=== PATIENT | female | born 1985 | race American Indian/Alaskan Native ===

== ENCOUNTER 2019-10-14 12:17 | Inpatient (IN) | payer OTHER ==
[2019-10-14] MEDS ORDERED: BUTORPHANOL 2 MG/1 ML INJ IV PRN (12:36)
[2019-10-14] MEDS ORDERED: OXYTOCIN DRIP 30,000 MILLIUNITS/500 ML BAG IV ONE (13:00)
[2019-10-14] MEDS ORDERED: AMPICILLIN 2 GM in SODIUM CHLORIDE 0.9% 50 ML IV ONE (13:00)
[2019-10-14 14:03] LABS: Hematocrit 31.4 % (30.3-42.9); Hemoglobin 10.4 gm/dl (10.1-14.3); Mean Corpuscular HGB Conc 33 % (30-34); Mean Corpuscular Volume 81 fl (79-97); Platelet Count 286 K/mm3 (140-440); Red Cell Distribution Width 18.4 % (13.2-15.2)
[2019-10-14 14:28] LABS: Alanine Aminotransferase 8 units/L (7-56); Uric Acid 5.7 mg/dL (3.5-7.6)
[2019-10-14] MEDS: LACTATED RINGERS 1,000 ML IV SCH ×2 (14:54→19:35)
[2019-10-14] MEDS ORDERED: AMPICILLIN/NS 1 GM/50 ML 1 GM/50 ML BAG IV SCH (17:00)
[2019-10-14] MEDS ORDERED: ePHEDrine SULFATE 50 MG/1 ML INJ ONE (19:23)
[2019-10-14] MEDS ORDERED: fentaNYL 100 MCG/2 ML INJ ONE ×2 (19:29→20:19)
[2019-10-14] MEDS ORDERED: BUPIVACAINE/PF (0.25%) 2.5 MG/ML 10 ML VIAL INFILTRATI ONE (19:29)
[2019-10-14] MEDS ORDERED: OXYTOCIN 20 UNIT/1000ML DRIP 20,000 MILLIUNITS/1,000 ML BAG IV ONE (19:34)
[2019-10-14] MEDS ORDERED: LIDOCAINE (2%) 20 MG/1 ML VIAL 20 ML MDV INFILTRATI ONE ×4 (19:47→20:59)
[2019-10-14] MEDS ORDERED: OXYTOCIN 10 UNIT/1 ML INJ ONE (20:07)
[2019-10-14] MEDS ORDERED: fentaNYL 100 MCG/2 ML INJ IV ONE ×2 (20:32→21:00)
[2019-10-14] MEDS ORDERED: ePHEDrine SULFATE 50 MG/1 ML INJ IV PRN (20:59)
[2019-10-14] MEDS ORDERED: MINERAL OIL 30 ML ORAL LIQD PO PRN (20:59)
[2019-10-14] MEDS ORDERED: LACTATED RINGERS 1,000 ML IV SCH (21:00)
[2019-10-14] MEDS ORDERED: OXYTOCIN 20 UNIT/1000ML DRIP 20 UNITS/1,000 ML BAG IV SCH (21:00)
--- NOTE | 2019-10-14 21:09 | History and Physical Report ---
History of Present Illness Date of examination: 10/14/19 Date of admission: 10/14/19 13:25 Chief complaint: My water broke History of present illness: Pt is a 34 year old who presents at 39.2 weeks with c/o rom and contractions. Per patient her course has been complicated by fibroids. She has been receiving care at [facility]. records are not available for review. Past History Past Medical History: no pertinent history Past Surgical History: no surgical history REVENUE MANAGER History: fibroids Social history: - Obstetrical History Expected Date of Delivery: 10/19/19 Actual Gestation: 39 Week(s) 2 Day(s) : 1 Medications and Allergies Allergies Allergy/AdvReac Type Severity Reaction Status Date / Time No Known Allergies Allergy Unverified 10/14/19 12:29 Home Medications Medication Instructions Recorded Confirmed Last Taken Type Vitamin 1 tab PO DAILY 10/14/19 10/14/19 Unknown History Active Meds: Active Medications Butorphanol Tartrate (Stadol) 2 mg IV Q2H PRN PRN Reason: Labor Pain Last Admin: 10/14/19 16:06 Dose: 2 mg Documented by: Ephedrine Sulfate (Ephedrine Sulfate) 10 mg IV Q2M PRN PRN Reason: Hypotension Lactated Ringer's (Lactated Ringers) 1,000 mls @ 125 mls/hr IV DIRECT QUETA Last Admin: 10/14/19 19:35 Dose: 125 mls/hr Documented by: Oxytocin/Sodium Chloride (Pitocin/Ns 30 Unit/500ml) 30,000 milliunits in 500 mls @ 4 mls/hr IV DIRECT ONE; Protocol Stop: 10/19/19 17:59 Last Admin: 10/14/19 13:30 Dose: 4 milliunits/min, 4 mls/hr Documented by: Ampicillin Sodium (Ampicillin/Ns 1 Gm/50 Ml) 1 gm in 50 mls @ 100 mls/hr IV Q4H QUETA; Protocol Last Admin: 10/14/19 18:03 Dose: 100 mls/hr Documented by: Oxytocin/Sodium Chloride (Pitocin/Ns 20 Unit/1000ml Drip) 20 units in 1,000 mls @ 125 mls/hr IV DIRECT QUETA Lactated Ringer's (Lactated Ringers) 1,000 mls @ 125 mls/hr IV DIRECT QUETA Mineral Oil (Mineral Oil) 30 ml PO QHS PRN PRN Reason: Constipation Review of Systems All systems: negative Constitutional: weakness Breasts: deferred Genitourinary: leakage of fluid, contractions - Vital Signs Vital signs: Vital Signs Pulse BP 91 H 133/85 10/14/19 14:50 10/14/19 14:50 Temp Pulse Resp BP Pulse Ox 97.3 F L 102 H 154/75 10/14/19 14:59 10/14/19 20:49 10/14/19 20:49 - Physical Exam Breasts: Cardiovascular: Regular rate, Normal S1, Normal S2 Abdomen: Positive: normal appearance, soft, normal bowel sounds. Negative: distention, tenderness Vulva: both: normal Vagina: Positive: normal moisture. Negative: discharge Cervix: Negative: lesion, discharge Uterus: Positive: normal size, normal contour Adnexa: both: normal Anus/Rectum: Positive: normal perianal skin, heme negative. Negative: rectal mass, hemorrhoids Extremities: Deep Tendon Reflex Grade: Normal +2 - Obstetrical Cervical Dilatation: 1 Cervical Effacement Percentage: 50 station: -3 Uterine Contraction Pattern: Irregular Uterine Contraction Intensity: Moderate Results Result Diagrams: 10/14/19 13:47 10/14/19 13:47 Abnormal lab results 10/14/19 10/14/19 Range/Units 13:47 13:47 MCH 27 L (28-32) pg RDW 18.4 H (13.2-15.2) % Creatinine 0.5 L (0.7-1.2) mg/dL Lactate Dehydrogenase 207 H (91-180) units/L All other labs normal. Assessment and Plan IUP at 39.2 weeks with SROM. WIll admit to L&d. Treat for unknown GBS status. Pt may have epidural when ready. Anticipate .
--- NOTE | 2019-10-14 21:15 | Procedure Note ---
OB Delivery Note - Delivery Date of Delivery: 10/14/19 Surgeon: DARIAN JUÁREZ Estimated blood loss: 300cc - Vaginal Delivery presentation: vertex Delivery position: OA Intrapartum events: shoulder dystocia Delivery induction: none Delivery augmentation: pitocin Delivery monitor: external FHT, external uterine Route of delivery: Delivery placenta: spontaneous Delivery cord: 3 umbilical vessels Episiotomy: none Delivery laceration: 3rd degree (partial), vaginal side wall Delivery repair: vicryl Delivery comments: Viable female delivered by inhouse medical record specialist with apgars 6,9 and reported minor shoulder dystocia. Cord clamped and cut and infant handed to waiting nursery team. Placenta delivered spontaneuosly and intact by physician. partial 3rd degree laceration repaired with 3.0 vicryl and vaginal tears repaired with 2.0 vicryl. Pt tolerated procedure well Note: Day shift nurse was attempting to reach the wrong provider. Dr neon molder was not notified of patient progress until she was 9.5cm dilated - A at 1 minute: 6 at 5 minutes: 9 Infant Gender: Female (9 pounds 2 ounces)
[2019-10-14] MEDS ORDERED: ONDANSETRON 4 MG/2 ML INJ IV PRN (22:44)
[2019-10-14] MEDS ORDERED: WITCH HAZEL/ GLYCERIN PAD TP PRN (22:44)
[2019-10-14] MEDS ORDERED: diphenhydrAMINE 25 MG CAP PO PRN (22:44)
[2019-10-14] MEDS ORDERED: PROMETHAZINE 25 MG TAB PO PRN (22:44)
[2019-10-14] MEDS ORDERED: MAGNESIUM HYDROXIDE (MOM) ORAL LIQD UDC PO PRN (22:44)
[2019-10-14] MEDS ORDERED: LANOLIN/ZINC/DIMETHICONE (LANSINOH) 7 GM TP PRN (22:44)
[2019-10-14] MEDS ORDERED: ACETAMINOPHEN 325 MG TAB PO PRN (22:44)
[2019-10-14] MEDS: METHYLERGONOVINE 0.2 MG TABLET PO SCH (22:45)
[2019-10-14] MEDS: FERROUS SULFATE 325 MG TAB PO SCH (22:45)
[2019-10-14] MEDS: DOCUSATE SODIUM 100 MG CAP PO SCH (22:45)
[2019-10-14] MEDS: HYDROcodone/ACETAMINOPHEN 5-325 MG TAB PO PRN (22:59)
[2019-10-14] MEDS: IBUPROFEN 600 MG TAB PO SCH (23:56)
[2019-10-15] MEDS ORDERED: OXYTOCIN 10 UNIT/1 ML INJ IM ONE (01:36)
[2019-10-15] MEDS: HYDROcodone/ACETAMINOPHEN 5-325 MG TAB PO PRN ×2 (05:13→19:59)
[2019-10-15] MEDS: METHYLERGONOVINE 0.2 MG TABLET PO SCH ×3 (05:42→21:59)
[2019-10-15] MEDS: IBUPROFEN 600 MG TAB PO SCH ×3 (06:00→17:51)
[2019-10-15] MEDS ORDERED: TETANUS,DIPH,PERTUSS(ACELL) VACCINE 0.5 ML SYRINGE IM ONE (06:00)
[2019-10-15 10:14] LABS: Hematocrit 27.6 % (30.3-42.9)
[2019-10-15] MEDS: FERROUS SULFATE 325 MG TAB PO SCH ×2 (11:08→21:59)
[2019-10-15] MEDS: DOCUSATE SODIUM 100 MG CAP PO SCH ×2 (11:08→22:04)
--- NOTE | 2019-10-15 23:18 | Progress Note ---
Assessment and Plan PPD 1 s/p , doing well. Pt encouraged to use ice packs and dermoplast for vaginal discomfort. She is anemic and is encoraged to take iron as well as stool softeners. Subjective - Subjective Date of service: 10/15/19 Principal diagnosis: Spontaneous Vaginal Delivery Interval history: Pt is PPD 2 from unmedicated vaginal delivery. Pt is ambulating but still has complaint of perineal discomfort. She is otherwise doing well Patient reports: appetite normal, voiding normally, pain well controlled, ambulating normally : doing well Objective - Vital Signs Latest vital signs: Vital Signs Temp Pulse Resp BP BP Pulse Ox 10/15/19 16:11 97.9 F 104 H 18 144/78 10/15/19 12:09 97.7 F 108 H 18 142/88 10/15/19 08:03 97.9 F 97 H 18 125/73 10/15/19 03:53 98.2 F 129 H 20 122/76 97 Intake and Output 10/15/19 10/15/19 10/16/19 14:59 22:59 06:59 Intake Total 960 840 Balance 960 840 Intake: Oral 960 480 Intake, Free Water 360 Other: Total, Intake Amount 480 480 # Voids Void 2 - Exam Breasts: Present: deferred Cardiovascular: Present: Regular rate, Normal S1, Normal S2 Lungs: Present: Clear to auscultation, Normal air movement Abdomen: Present: normal appearance, soft Vulva: both: normal Uterus: Present: fundal height below umbilicus Extremities: Present: normal - Labs Labs: Abnormal lab results 10/15/19 Range/Units 09:10 Hgb 9.0 L (10.1-14.3) gm/dl Hct 27.6 L (30.3-42.9) %
[2019-10-16] MEDS: IBUPROFEN 600 MG TAB PO SCH ×3 (00:39→11:40)
[2019-10-16] MEDS: METHYLERGONOVINE 0.2 MG TABLET PO SCH (06:23)
[2019-10-16] MEDS: HYDROcodone/ACETAMINOPHEN 5-325 MG TAB PO PRN (07:49)
--- NOTE | 2019-10-16 08:41 | Progress Note ---
Assessment and Plan A/P PPD2 s/p with 3rd degree repair d/c home today with f/u in 1 week of repair Subjective - Subjective Date of service: 10/16/19 Principal diagnosis: Spontaneous Vaginal Delivery Patient reports: voiding normally, pain well controlled, flatus, ambulating normally [place]: doing well Objective - Vital Signs Latest vital signs: Vital Signs Temp Pulse Resp BP BP Pulse Ox 10/16/19 00:32 97.1 F L 97 H 20 129/80 97 10/15/19 16:11 97.9 F 104 H 18 144/78 10/15/19 12:09 97.7 F 108 H 18 142/88 Intake and Output 10/15/19 10/16/19 10/16/19 23:59 07:59 15:59 Intake Total 840 720 Balance 840 720 Intake: Oral 480 Intake, Free Water 360 720 Other: Total, Intake Amount 480 # Voids Void 2 1 - Exam Breasts: Present: normal Cardiovascular: Present: Regular rate, Normal S1 Lungs: Present: Clear to auscultation, Normal air movement Abdomen: Present: normal appearance, soft, normal bowel sounds. Absent: distention, tenderness, guarding Uterus: Present: normal, firm, fundal height below umbilicus. Absent: bogginess, tenderness Extremities: Present: normal Incision: Present: normal - Labs Labs: Abnormal lab results 10/15/19 Range/Units 09:10 Hgb 9.0 L (10.1-14.3) gm/dl Hct 27.6 L (30.3-42.9) %
--- NOTE | 2019-10-16 08:52 | Discharge Summary ---
Providers - Providers Date of Admission: 10/14/19 13:25 Date of discharge: 10/16/19 Attending physician: CHRISTOPHER CROWE MD Primary care physician: CHRISTOPHER CROWE MD Hospitalization Reason for admission: active labor Delivery: Episiotomy: none Laceration: 3rd degree Incision: normal, dry, intact Other procedures: none Discharge diagnosis: IUP at term delivered [place] baby: female Hospital course: Patient delivered vaginal with 3rd degree tear Condition at discharge: Good Disposition: DC-01 TO HOME OR SELFCARE Plan - Provider Discharge Summary Activity: routine, no sex for 6 weeks, no strenuous exercise Diet: routine Instructions: routine Additional instructions: [] Smoking cessation referral if applicable(refer to patient education folder for contact #) [] Refer to [facility] Booklet Call your doctor immediately for: * Fever > 100.5 * Heavy vaginal bleeding ( >1 pad per hour) * Severe persistent headache * Shortness of breath * Reddened, hot, painful area to leg or breast * Drainage or odor from incision. * Keep incision clean and dry at all times and follow doctor's instructions regarding bathing/showering - Follow up plan Follow up: CHRISTOPHER CROWE MD [Primary Care Provider] - 7 Days
[2019-10-16] MEDS: FERROUS SULFATE 325 MG TAB PO SCH (09:24)
[2019-10-16] MEDS: DOCUSATE SODIUM 100 MG CAP PO SCH (09:24)
[2019-10-16 12:22] VITALS: BP 135/85
== END 2019-10-16 13:45 | disposition home or self-care (01) | DRG 768 ==
LOC: TRG 12:17 → LD 13:25 → OB 22:42
PROVIDERS: ADMIT Obstetrics & Gynecology; ATTEND Obstetrics & Gynecology
PROC: 10E0XZZ Delivery of Products of Conception, External Approach (ICD-10-PCS; principal; 2019-10-14)
PROC: 0DQR0ZZ Repair Anal Sphincter, Open Approach (ICD-10-PCS; 2019-10-14)
PROC: 0UQGXZZ Repair Vagina, External Approach (ICD-10-PCS; 2019-10-14)
PROC: 3E0234Z Introduction of Serum, Toxoid and Vaccine into Muscle, Percutaneous Approach (ICD-10-PCS; 2019-10-15)
DX: O66.0 Obstructed labor due to shoulder dystocia (principal); Z37.0 Single live birth; O70.20 Third degree perineal laceration during delivery, unspecified; Z3A.39 39 weeks gestation of pregnancy; Z23 Encounter for immunization
CPT/HCPCS: 36415; 82565; 83615; 84450; 84460; 84550; 85014; 85018; 85027; 86850; 86900; 86901; 90715; G0378; J0290; J0595; J2590; J3010; J7120